=== PATIENT | female | born 1980 | race Caucasian/White ===

== ENCOUNTER 2016-11-17 16:23 | Observation (INO) | payer OTHER, MEDICAID ==
[2016-11-17 16:48] VITALS: O2SAT 99
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
[2016-11-17 17:03] LABS: I-STAT POTASSIUM 3.8 MMOL/L (3.5-4.9)
[2016-11-17] MEDS ORDERED: IOHEXOL 350 MG/ML 10 ML VIAL (for RAD DIAG) IV ONE (17:05)
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
[2016-11-17 17:07] VITALS: BP 91/50; PULSE 80; RESP 20; O2SAT 100
[2016-11-17 17:07] LABS: APTT (PATIENT) 22.4 SEC (24.3-30.1); INTERNATIONAL NORMALIZED RATIO 0.9 RATIO; PROTHROMBIN TIME - PATIENT 10.1 SEC (9.8-11.6)
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
[2016-11-17] MEDS ORDERED: SODIUM CHLORIDE 0.9% FLUSH 5 ML FLUSH IV FLUSH PRN (17:30)
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
[2016-11-17] MEDS: LACTATED RINGER'S 1000 ML INJ 1,000 ML IV SCH ×2 (17:58→23:54)
[2016-11-17 18:00] VITALS: BP 94/58; PULSE 75; RESP 17; O2SAT 98
[2016-11-17] MEDS ORDERED: MORPHINE SULFATE 4 MG/ML INJ IV PRN ×2 (18:00)
[2016-11-17] MEDS ORDERED: oxyCODONE/ACETAMINOPHEN 10 MG/325 MG TAB PO PRN (18:00)
[2016-11-17 18:30] VITALS: BP 103/61; PULSE 77; RESP 16; O2SAT 97
[2016-11-17] MEDS: SODIUM CHLORIDE 0.9% FLUSH 5 ML FLUSH IV FLUSH SCH (21:00)
[2016-11-17 21:19] VITALS: BP 125/71; PULSE 78; RESP 18; O2SAT 93
[2016-11-17 22:40] LABS: BICARBONATE 23.6 MEQ/L (21.0-32.0); POTASSIUM 3.9 MEQ/L (3.5-5.1)
[2016-11-17 22:45] VITALS: BP 104/64; PULSE 74; RESP 16; TEMP 96.4; O2SAT 100
[2016-11-18 04:00] VITALS: BP 95/53; PULSE 81; RESP 16; TEMP 97.7; O2SAT 97
[2016-11-18 06:09] LABS: AUTOMATED NEUTROPHIL # 3.9 TH/MM3 (1.8-7.7); BASOPHIL % 0.4 % (0.0-2.0); EOSINOPHIL # 0.1 TH/MM3 (0-0.4); EOSINOPHIL % 1.8 % (0.0-4.0); HEMATOCRIT 23.1 % (35.0-46.0); LYMPH % 31.3 % (9.0-44.0); MEAN CELL VOLUME 65.4 FL (80.0-100.0); MEAN CORPUSCULAR HEMOGLOBIN 20.6 PG (27.0-34.0); MEAN CORPUSCULAR HGB CONC 31.5 % (32.0-36.0); MONO % 4.4 % (0.0-8.0); NEUT % 62.1 % (16.0-70.0); PLATELET COUNT 164 TH/MM3 (150-450); RED BLOOD COUNT 3.54 MIL/MM3 (4.00-5.30); RED CELL DISTRIBUTION WIDTH 17.3 % (11.6-17.2); WHITE BLOOD COUNT 6.3 TH/MM3 (4.0-11.0)
[2016-11-18 06:16] LABS: HEMO FLAGS AUTO DIFF
[2016-11-18 08:00] VITALS: BP 97/69; PULSE 78; RESP 18; TEMP 96.9; O2SAT 98
[2016-11-18 08:32] LABS: PLATELET ESTIMATE SMEAR NORMAL (NORMAL); PLATELET MORPHOLOGY NORMAL (NORMAL); SCAN/DIFF AUTO DIFF CONFIRMED
[2016-11-18 08:33] LABS: OVALOCYTES 1+ (NORMAL)
[2016-11-18] MEDS: SODIUM CHLORIDE 0.9% FLUSH 5 ML FLUSH IV FLUSH SCH (09:33)
[2016-11-18] MEDS: oxyCODONE/ACETAMINOPHEN 5 MG/325 MG TAB PO PRN ×2 (09:34→14:02)
[2016-11-18] MEDS: LACTATED RINGER'S 1000 ML INJ 1,000 ML IV SCH (09:35)
[2016-11-18 12:00] VITALS: BP 95/60; PULSE 79; RESP 18; TEMP 97.1; O2SAT 99
[2016-11-18 12:50] LABS: BASOPHIL % 0.5 % (0.0-2.0); HEMATOCRIT 23.6 % (35.0-46.0); LYMPH % 27.6 % (9.0-44.0); LYMPHOCYTE # 1.2 TH/MM3 (1.0-4.8); MEAN CELL VOLUME 65.2 FL (80.0-100.0); MEAN CORPUSCULAR HEMOGLOBIN 20.2 PG (27.0-34.0); MONO % 4.1 % (0.0-8.0); NEUT % 66.8 % (16.0-70.0); PLATELET COUNT 165 TH/MM3 (150-450); RED BLOOD COUNT 3.62 MIL/MM3 (4.00-5.30); RED CELL DISTRIBUTION WIDTH 17.5 % (11.6-17.2); WHITE BLOOD COUNT 4.4 TH/MM3 (4.0-11.0)
[2016-11-18 12:53] LABS: HEMO FLAGS AUTO DIFF
[2016-11-18 14:00] LABS: OVALOCYTES 1+ (NORMAL); PLATELET ESTIMATE SMEAR NORMAL (NORMAL); PLATELET MORPHOLOGY NORMAL (NORMAL); SCAN/DIFF AUTO DIFF CONFIRMED
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
[2016-11-18] MEDS ORDERED: ACET1CAP18 PO (16:19)
== END 2016-11-18 16:31 | disposition home or self-care (01) ==
LOC: NEPI 16:23 → EDBD 17:46 → NEDA 17:46 → N06A 22:00
PROVIDERS: ADMIT Surgery Trauma Surgery; ATTEND Surgery Trauma Surgery
DX: S09.90XA Unspecified injury of head, initial encounter (principal); R55 Syncope and collapse; F10.129 Alcohol abuse with intoxication, unspecified; R10.9 Unspecified abdominal pain; R41.82 Altered mental status, unspecified; I95.9 Hypotension, unspecified; V49.9XXA Car occupant (driver) (passenger) injured in unspecified traffic accident, initial encounter; Y90.6 Blood alcohol level of 120-199 mg/100 ml
CPT/HCPCS: 51702; 70450; 71010; 71260; 72125; 72170; 74177; 80048; 80320; 82435; 82565; 82947; 84132; 84295; 84520; 84702; 84703; 85025; 85610; 85730; 86850; 86900; 86901; 99285; 99291; A0431; A0436; G0378; J7120; Q9967; G0390